=== PATIENT | male | born 1975 | race Caucasian/White ===

== ENCOUNTER → 2019-12-22 11:05 | Outpatient (CLI) | payer MEDICAID ==
[2012-05-16 00:59] VITALS: BMI 25.8
--- NOTE | ~2019-12-22 | EEG ---
PATIENT:ANURAG TRAN MEDICAL RECORD: [id number] DATE OF : 73 LOCATION: [facility] ADMISSION DATE: 12/22/19 REFERRING PHYSICIAN: INTERPRETING PHYSICIAN: IRENA WESTON MD DATE OF SERVICE: 12/22/2019 ORDERED BY: Dr. Weston. CASE HISTORY: A 44-year-old male with reported history of generalized seizures. PROCEDURE: EEG done as a routine outpatient laboratory recording using the standard 10-20 international electrode system, 16 channels used with 17th as EKG. Photic stimulation and hyperventilation were done as activation procedures. DESCRIPTION: EEG opens with the patient awake, alert with the record displaying a fairly well organized posterior dominant rhythm of 8 Hz, this is of moderate amplitude, symmetric and attenuates with eye opening. Later in the record, drowsiness occurs. Infrequent to occasional bilateral independent single theta slow waves were seen in the record. No epileptiform change such as spike, polyspike or spike and wave was seen. Photic stimulation did not yield a significant driving response. There was a photomyogenic or photoparoxysmal response seen. Hyperventilation did not yield significant buildup in background voltages, no paroxysmal response was seen. IMPRESSION: Minimally abnormal, waking and drowsy EEG with mild background theta slowing that might suggest mild cortical dysfunction. No evidence of seizure disorder was found in this recording. TRANSINT:[id number] Voice Confirmation ID: [id number] DOCUMENT ID: [id number] IRENA WESTON MD CC: [id number] DICTATION DATE: 12/22/19 185 VOIP NETWORK TECHNICIAN: 12/22/19 [id number] [facility] [address] [place] [address]
== END | disposition home or self-care (01) ==
LOC: D.CN 11-28 11:00 → D.MRI 11-28 13:00 → D.CN 11:00
PROVIDERS: ATTEND Psychiatry & Neurology Neurology
DX: G40.409 Other generalized epilepsy and epileptic syndromes, not intractable, without status epilepticus (principal)